=== PATIENT | male | born 1990 | race African-American/Black ===

== ENCOUNTER 2018-12-02 22:09 | Emergency (ER) | payer SELFPAY ==
--- NOTE | 2018-12-02 22:22 | EDM.PDOC ---
ED HPI GENERAL MEDICAL PROBLEM - General Chief Complaint: General Stated Complaint: Left Lateral rib pain Time Seen by Provider: 12/02/18 22:11 Source of Information: Reports: Patient, RN, RN Notes Reviewed History Limitations: Reports: No Limitations - History of Present Illness INITIAL COMMENTS - FREE TEXT/NARRATIVE: Patient presents to the ED at [facility] for the evaluation of left lateral rib pain that started one week ago. Patient denies any injury or trauma. Patient is not aware of any history of breathing problems. Patient states the pain is aggravated by laughing, coughing, and movement. No skin issues. The patient is reproducible with light palpation. Patient admits to drinking "lots of alcohol" today. Patient states the pain started out dull but now is sharp. Onset Date: 11/25/18 - Related Data Allergies Allergy/AdvReac Type Severity Reaction Status Date / Time No Known Allergies Allergy Verified 12/02/18 22:29 Home Meds: Home Meds . [No Known Home Meds] 12/02/18 [History] Past Medical History - Past Health History Medical/Surgical History: Denies Medical/Surgical History ED ROS GENERAL - Review of Systems Review Of Systems: See Below Constitutional: Denies: Fever, Chills Respiratory: Reports: Other (left lateral chest wall pain). Denies: Shortness of Breath, Cough Cardiovascular: Denies: Chest Pain, Palpitations GI/Abdominal: Denies: Abdominal Pain, Nausea, Vomiting Skin: Reports: No Symptoms Neurological: Reports: No Symptoms ED EXAM, GENERAL - Physical Exam Exam: See Below Exam Limited By: No Limitations General Appearance: Alert, No Apparent Distress Respiratory/Chest: No Respiratory Distress, Lungs Clear, Normal Breath Sounds, Other (chest tenderness lower left lateral/posterior; no obvious bone deformity ; no skin rash; no evidence of trauam/injury; appears muscle in nature) Cardiovascular: Normal Peripheral Pulses, Regular Rate, Rhythm GI/Abdominal: Normal Bowel Sounds, Soft, Non-Tender Neurological: Alert, Oriented Skin Exam: Warm, Dry, Intact, Normal Color Course - Orders/Labs/Meds Orders: Active Orders 24 hr Category Date Time Status Ribs 2V w Chest Lt [CR] Stat Exams 12/02/18 22:22 Taken - Radiology Interpretation Free Text/Narrative:: Rib w/chest: No acute fractures See scanned report in EMR for details Departure - Departure Time of Disposition: 23:08 Disposition: Home, Self-Care 01 Condition: Good Clinical Impression: Muscle spasm - Discharge Information *PRESCRIPTION DRUG MONITORING PROGRAM REVIEWED*: Not Applicable *COPY OF PRESCRIPTION DRUG MONITORING REPORT IN PATIENT RAE: Not Applicable Instructions: Muscle Cramps and Spasms Referrals: Yajaira Awad PA-C [Primary Care Provider] - Forms: ED Department Discharge Additional Instructions: 1. Stay well hydrated and rest 2. Use a heating pad to help with spasm/pain 3. May alternate Tylenol/Advil as needed for pain 4. Deep breath several times an hour to help stretch the chest muscles 5. See your Primary as symptoms warrant - Problem List Review Problem List Initiated/Reviewed/Updated: Yes - My Orders Last 24 Hours: My Active Orders 12/02/18 22:22 Ribs 2V w Chest Lt [CR] Stat - Assessment/Plan Last 24 Hours: My Active Orders 12/02/18 22:22 Ribs 2V w Chest Lt [CR] Stat Assessment:: Muscle spasm, left lateral lower chest wall Plan: Xray discussed with patient. No acute fracture identified. Discussed his symptoms are consistent with muscle spasm. Recommend alternating Advil/Tylenol, use heating pad, keep the area stretched. May benefit from physical therapy is home modalities do not help. Declined to give any pain medication while in the ER as patient smells of ETOH.
[2018-12-02 23:28] VITALS: BP 147/86
--- NOTE | 2018-12-03 18:20 | CR ---
[id number] RAD/RAD Ribs Left W PA Chest EXAM: LEFT RIBS 3 VIEWS. INDICATION: PAIN. COMPARISON: None. DISCUSSION: No fracture, dislocation or other osseous abnormality. The lungs are clear. Cardiomediastinal silhouette is normal in size and contour. IMPRESSION: 1. NO RADIOGRAPHIC EVIDENCE OF LEFT-SIDED RIB FRACTURE. Miguel A Reardon DO 12/03/18 1819 Thank you for allowing us to participate in the care of your patient.
== END 2018-12-02 23:19 | disposition home or self-care (01) ==
LOC: VM.ED 22:09
DX: M62.838 Other muscle spasm (principal); R07.9 Chest pain, unspecified
CPT/HCPCS: 71101-LT; 99284

== ENCOUNTER 2020-09-29 14:28 | Emergency (ER) | payer MEDICAID ==
[2020-09-29 15:33] VITALS: BP 120/67; PULSE 68
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
== END 2020-09-29 15:16 | disposition home or self-care (01) ==
LOC: VM.ED 14:28 → SUPCPDRO 14:28 → VM.ED 15:16
DX: U07.1 COVID-19 (principal)
CPT/HCPCS: 99283; 99284; U0002

== ENCOUNTER 2020-10-03 12:05 | Emergency (ER) | payer MEDICAID ==
[2020-10-03] MEDS ORDERED: Sodium Chloride 0.9% 10 ML Syringe FLUSH PRN (12:38)
[2020-10-03] MEDS ORDERED: Sodium Chloride 0.9% 1,000 ML IV ONE ×2 (12:42→15:17)
[2020-10-03] MEDS ORDERED: Dexamethasone 4 MG/ML SDV IVPUSH ONE (12:43)
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
[2020-10-03] MEDS: Take Home: Albuterol 18 GM Inhaler, 1 Inhaler Pack INH STA ×2 (12:56→15:16)
[2020-10-03 13:31] LABS: PCO2 ARTERIAL,POC 32 mmHg (35-48)
[2020-10-03] MEDS ORDERED: Iopamidol 612 MG/ML 100 ML Bottle IVPUSH ONE (13:45)
[2020-10-03 13:46] LABS: PTT,PARTIAL THROMBOPLSTIN TIME 30.4 SEC (25.6-32.8)
[2020-10-03 13:58] LABS: ANION GAP 12.3 mmol/L (10-20); CHLORIDE,CL 95 mmol/L (98-107); SODIUM,NA 130 mmol/L (136-145)
[2020-10-03] MEDS ORDERED: Albuterol HFA 18 Gm Inhaler INH STA (14:38)
--- NOTE | 2020-10-03 15:12 | CT ---
[id number] CT/CTA Chest Exam: CTA Chest Clinical Data: VIRAL INFECTION HYPOXIA COMPARISON: NO PREVIOUS SIMILAR EXAM IS AVAILABLE FINDINGS: Extensive bilateral infiltrates are seen. There are no pulmonary emboli There is no mediastinal mass or adenopathy IMPRESSION: NO PULMONARY EMBOLI EXTENSIVE BILATERAL PNEUMONIA Niko Walton MD 10/03/20 0326 Thank you for allowing us to participate in the care of your patient.
[2020-10-03] MEDS ORDERED: cefTRIAXone 1 GM Vial IVPUSH ONE (15:15)
[2020-10-03] MEDS ORDERED: Azithromycin 500 MG in Sodium Chloride 0.9% 250 ML IV ONE (15:16)
[2020-10-03] MEDS ORDERED: Ondansetron 4 MG/2 ML SDV IVPUSH ONE (15:38)
[2020-10-03 16:12] VITALS: BP 140/90; PULSE 104
== END 2020-10-03 16:30 | disposition short-term general hospital (02) ==
LOC: VM.ED 12:05
DX: U07.1 COVID-19 (principal); J12.89 Other viral pneumonia; J45.909 Unspecified asthma, uncomplicated; Z79.899 Other long term (current) drug therapy
CPT/HCPCS: 36415; 36600; 71275; 80053; 82803; 83735; 83880; 84484; 85025; 85379; 85610; 85730; 87040; 93005; 96365; 96375; 99285; A9270; J0456; J0696; J1100; J2405; J7030; J7050; Q9967; 93010; 99284

== ENCOUNTER 2024-01-07 17:19 | Emergency (ER) | payer MEDICAID | END 2024-01-07 18:14 | disposition home or self-care (01) | LOC: VM.ED 17:19 | DX: J02.8 Acute pharyngitis due to other specified organisms (principal); J10.1 Influenza due to other identified influenza virus with other respiratory manifestations | CPT/HCPCS: 99283 ==